=== PATIENT | male | born 1955 | race Caucasian/White ===

== ENCOUNTER 2017-12-10 16:18 | Emergency (ER) | payer MEDICAID ==
[2017-12-10] MEDS ORDERED: HYOSCYAMINE SULFATE 0.125 MG TAB PO ONE (16:43)
[2017-12-10] MEDS ORDERED: LIDOCAINE 2% VISCOUS 15 ML UDCUP PO ONE (16:43)
[2017-12-10] MEDS ORDERED: MAG HYDROX/AL HYDROX/SIMETH 30 ML UDCUP PO ONE (16:43)
--- NOTE | 2017-12-10 16:48 | EDPHY ---
H & P Time Seen by Provider: 12/10/17 16:31 HPI/ROS: CHIEF COMPLAINT: Pill stuck in throat HISTORY OF PRESENT ILLNESS: This is a 62-year-old gentleman who reports that this morning he took 2 Colace pills. The 1st pill he swallowed normally. He feels that the 2nd pill was stuck right at the level of his larynx. Patient has been able to eat solids, and drink liquids without any difficulty. He is handling his secretions. He did not have a coughing or choking episode when he was swallowing the pills. He does not feel short of breath. He does not have any chest pain. He reports it feels like the pill is "rolling around" near his larynx, to the left side. He does report that he has difficulty swallowing his pills and will feel like 1 of them gets stuck at least every couple of months. He has not had a upper GI study performed. The patient did not take his other usual medications this morning after having difficulty swallowing the Colace, does he feels confident that it was the Colace tablet which is lodged. He was otherwise well with the exception of some constipation. REVIEW OF SYSTEMS: Aside from elements discussed in the HPI, a comprehensive 10-point review of systems was reviewed and is negative. PAST MEDICAL HISTORY: Hypertension. Myocardial infarction, sinus surgeries. SOCIAL HISTORY: Nonsmoker. VITAL SIGNS: see nurse's notes. GENERAL: Well-developed, well-nourished, speaking in a normal voice. No stridor. No respiratory distress. No drooling. HEENT: Normal, no discharge or icterus, moist mucous membranes. Posterior pharynx is normal, no abrasions noted. No pooling of secretions. Neck: supple , FROM. No subcutaneous air palpated. No tenderness along the larynx. LUNGS: Clear to auscultation bilaterally, no wheezes, rhonchi or rales. No stridor. CARDIAC: Regular rate and rhythm, no rubs, murmurs or gallops. ABDOMEN: Soft, nontender, nondistended, bowel sounds normal. BACK: No CVA tenderness. No vertebral tenderness. EXTREMITIES: No edema, FROM. NEURO: Alert and oriented, grossly nonfocal. SKIN: Warm and dry, no rash. Smoking Status: Former smoker Constitutional: Initial Vital Signs Temperature (C) 36.7 C 12/10/17 16:27 Heart Rate 81 12/10/17 16:27 Respiratory Rate 18 12/10/17 16:27 Blood Pressure 146/97 H 12/10/17 16:27 O2 Sat (%) 93 12/10/17 16:27 O2 Delivery Mode Room Air Allergies/Adverse Reactions: Sulfa (Sulfonamide Antibiotics) Adverse Reaction (Verified 12/10/17 16:23) Home Medications: Medication Instructions Recorded Aspirin [Aspirin 325 mg (OTC)] 325 mg PO DAILY PRN 09/29/12 Lisinopril [Zestril 2.5 mg (*)] 2.5 mg PO DAILY #30 tab 09/29/12 Metoprolol Tartrate [Lopressor 50 50 mg PO BID #60 tab 09/29/12 mg (*)] Ondansetron Odt [Zofran Odt] 4 mg PO Q4PRN PRN #20 tab 09/29/12 Atorvastatin Calcium 05/15/14 Protonix 05/15/14 Gabapentin 10/12/14 Claritin 12/10/17 Nortriptyline HCl 12/10/17 Pulmicort 0.5MG/2Ml Neb 12/10/17 Ranitidine HCl 12/10/17 traZODone 12/10/17 Medical Decision Making - Diagnostics Imaging Results: Imaging Impressions Soft Tissue Neck X-Ray 12/10/17 16:43 Impression: 1. No radiopaque foreign object identified. Multiple pills may not be radiopaque. 2. Degenerative change in the cervical spine. 3. Carotid atherosclerosis. ED Course/Re-evaluation: Soft tissue lateral of the neck was ordered to evaluate for any foreign body visible in the upper airway. Patient does not have any stridor, difficulty speaking, coughing, or choking. No foreign body visualized in the upper airway on the soft tissues. We do not have a nasopharyngeal scope available at this institution. Patient received a GI cocktail and felt like it diminished his discomfort although he occasionally still feels that there is something stuck to the left side of his larynx. He continues to look well with no speech difficulty or stridor. He was advised to follow up with ENT as soon as possible if he continues to have symptoms especially if he should have coughing or choking sensation. He understands reasons to return to the emergency department. She also understands that drinking fluids and carbonated beverages may be helpful in helping any residual pill fragments to dissolve. Differential Diagnosis: Differential diagnoses for the patient's symptom complex was considered including but not limited to swallowed foreign body, esophageal abrasion, aspirated foreign body, foreign body sensation, esophagitis, pill esophagitis. - Data Points Medications Given: Discontinued Medications Al Hydroxide/Mg Hydroxide (Maalox Susp) 30 ml PO ONCE ONE Stop: 12/10/17 16:44 Last Admin: 12/10/17 17:02 Dose: 30 ml Hyoscyamine Sulfate (Levsin, Hyomax-Sl) 0.25 mg PO ONCE ONE Stop: 12/10/17 16:44 Last Admin: 12/10/17 17:02 Dose: 0.25 mg Lidocaine (Lidocaine 2% Viscous) 15 ml PO ONCE ONE Stop: 12/10/17 16:44 Last Admin: 12/10/17 17:02 Dose: 15 ml Departure - Departure Disposition: Home, Routine, Self-Care Clinical Impression: Swallowed foreign body Qualifiers: Encounter type: initial encounter Qualified Code(s): T18.9XXA - Foreign body of alimentary tract, part unspecified, initial encounter Condition: Good Instructions: Esophageal Foreign Body (ED) Additional Instructions: Please drink plenty of liquids and fluids. Consider drinking carbonated beverage which may help dissolve any residual pill fragments. Okay to take Maalox or Mylanta this helps to the esophagus. Avoid spicy foods until you are feeling better. Follow up with ENT as directed below if you continued to feel that there is a pill lodged near your larynx. I would also encourage you to follow up with Gastroenterology if you continued to have difficulty swallowing pills. You may need to have a esophageal study performed. Referrals: Claudio Porter MD [Primary Care Provider] - As per Instructions Miguel Rubio MD [Medical Doctor] - As per Instructions (Dr. Rubio is in Ear Nose and Throat physician) Jacinto Davey MD, FACG [Medical Doctor] - As per Instructions (Dr. Davey is a wire coiler machine operator)
[2017-12-10 17:34] VITALS: BP 152/92
== END 2017-12-10 17:22 | disposition home or self-care (01) ==
LOC: CED 16:18
DX: T18.9XXA Foreign body of alimentary tract, part unspecified, initial encounter (principal); I10 Essential (primary) hypertension; I25.2 Old myocardial infarction; Z79.82 Long term (current) use of aspirin; X58.XXXA Exposure to other specified factors, initial encounter
CPT/HCPCS: 70360-PO

== ENCOUNTER → 2017-12-13 | Outpatient (CLI) | payer MEDICAID | LOC: CIMAGING 07:20 | PROVIDERS: ATTEND Physician Assistant | DX: R11.2 Nausea with vomiting, unspecified (principal) | CPT/HCPCS: 76705-PO ==

== ENCOUNTER 2018-04-13 05:06 | Emergency (ER) | payer OTHER, MEDICARE ==
--- NOTE | 2018-04-13 05:49 | EDPHY ---
H & P Stated Complaint: Stomach cramps intermittant. Source: Patient - Medical/Surgical History Other PMH: Previous heart attack, cyclic vomiting syndrome, uses marijuana, spinal fusion C5-6, degerative disks, cataracts '2009. multiple sinus surgerie , Gastric issues sees Gastroenerologist. - Social History Smoking Status: Former smoker Time Seen by Provider: 04/13/18 05:22 HPI/ROS: CHIEF COMPLAINT: Nausea vomiting abdominal pain History by patient HISTORY OF PRESENT ILLNESS: 63-year-old man with a history of prior MA and cyclic vomiting syndrome, and abdominal surgery for duodenal cyst presents tonight complaining of upper abdominal pain which woke him from sleep. Patient states that earlier in the evening he had some nausea after eating pizza and then developed some diffuse crampy pain that radiated to his back but then woke up with more nausea had 1 episode of vomiting now has the persistent pain. He states that is typical for him to have nausea every day and his last episode of severe vomiting with 6 months ago but that he normally does not get associated abdominal pain. He denies any diarrhea. He denies any fever. Pain does not radiate to his leg or groin. He denies any numbness or weakness in his legs. He denies any urinary symptoms.. He has chronic neck pain for which he sometimes takes Percocet but says he has not taken this in several months. He smokes marijuana for his chronic neck pain. He says his cyclic vomiting began before he started smoking marijuana. He is followed by of GI and Dr. Camacho. REVIEW OF SYSTEMS: As in HPI, and all other systems reviewed and are negative (Sarah Guillen) - Physical Exam Exam: General Appearance: Alert, nontoxic appearing, comfortable appearing. Eyes: Pupils equal and round, extraocular movements intact, no pallor or injection. Mouth: Mucous membranes moist. Pharynx clear Respiratory: Normal, effort, lungs are clear to auscultation. No wheezes, rales or rhonchi. Cardiovascular: Regular rate and rhythm. S1, S2, no murmurs, gallops or rubs appreciated Gastrointestinal: Well-healed midline scar, bowel sounds present, Abdomen is soft and nondistended, nontender, no masses Back: No CVA tenderness, no bony tenderness : Normal external genitalia Neurological: Awake, alert and oriented x 3, no pronator drift, normal gait, no pronator drift Skin: Warm and dry, no rashes. Musculoskeletal: No deformities or tenderness. Extremities: full range of motion, no edema, femoral pulses equal bilaterally Psychiatric: Patient has normal affect, there is no agitation. (Sarah Guillen) Constitutional: Initial Vital Signs Temperature (C) 37.1 C 04/13/18 05:10 Heart Rate 69 04/13/18 05:10 Respiratory Rate 16 04/13/18 05:10 Blood Pressure 161/89 H 04/13/18 05:10 O2 Sat (%) 91 L 04/13/18 05:10 O2 Delivery Mode Room Air Allergies/Adverse Reactions: Sulfa (Sulfonamide Antibiotics) Adverse Reaction (Intermediate, Verified 05:11) Rash Home Medications: Medication Instructions Recorded Aspirin [Aspirin 325 mg (OTC)] 325 mg PO DAILY PRN 09/29/12 Lisinopril [Zestril 2.5 mg (*)] 2.5 mg PO DAILY #30 tab 09/29/12 Metoprolol Tartrate [Lopressor 50 50 mg PO BID #60 tab 09/29/12 mg (*)] Ondansetron Odt [Zofran Odt] 4 mg PO Q4PRN PRN #20 tab 09/29/12 Atorvastatin Calcium 05/15/14 Protonix 05/15/14 Gabapentin 10/12/14 Claritin 12/10/17 Pulmicort 0.5MG/2Ml Neb 12/10/17 traZODone 12/10/17 Hyoscyamine Sulfate [Levsin, 0.125 - 0.25 mg SL Q6 PRN #20 tab 04/13/18 Hyomax-Sl 0.125 mg (*)] Medical Decision Making - Diagnostics EKG Interpretation: Normal sinus rhythm at a rate of 60 with normal axis, normal intervals, early transition of R-wave, there is no old EKG available for comparison. No evidence of acute ischemia. Impression: Abnormal EKG (Sarah Guillen) ED Course/Re-evaluation: 63-year-old man with history of chronic cyclical vomiting syndrome presents with nausea, vomiting and abdominal pain which is not typical for him. Exam is unremarkable and he is hemodynamically stable. Patient was given IV Haldol with improvement in his pain and nausea but not complete resolution of his nausea. I reviewed old records showed the patient had ultrasound 3 months ago that showed a borderline aneurysm neck proximal aorta and unremarkable gallbladder. Given this and the atypical pain symptoms the CT scan is obtained his abdomen. This was read by the radiologist as ileus versus early small bowel obstruction. Patient's labs were notable for slightly low potassium, normal CBC and normal liver enzymes. Lipase is pending at time dictation. On re-evaluation of the patient was feeling somewhat better and was willing to try oral fluids. There is no obvious evidence of emergent surgical condition at this time. I will transfer care to Dr. Nguyễn pending results of the lipase and p.o. Challenge. (Sarah Guillen) I spoke with this patient at 7:30 a.m. Relating the his normal lipase to him and re-examined his belly at this time is normoactive bowels with mild tenderness in left upper quadrant with no guarding or rebound. He reports that he has 2 to 3/10 crampy discomfort that his nausea is improved. He tolerated p. O. Juliet catrachita. He would like to try some Levsin for his cramping prior to discharge. (Mason Nguyễn) - Data Points Laboratory Results: 04/13/18 04/13/18 04/13/18 06:11 06:09 05:58 POC Sodium 140 mEq/L mEq/L (135-145) POC Potassium 3.2 mEq/L L mEq/L (3.3-5.0) POC Chloride 103.0 mEq/L mEq/L (97-110) POC Total CO2 24 mEq/L mEq/L (22-31) POC BUN 14 mg/dL mg/dL (7-23) POC Creatinine 1.0 mg/dL mg/dL (0.7-1.3) POC Glucose 135 mg/dL H mg/dL (70-100) POC Calcium 9.8 mg/dL mg/dL (8.5-10.4) POC Total Bilirubin 0.9 mg/dL mg/dL (0.1-1.4) POC GGT 20 IU/L IU/L (5-65) POC AST 34 IU/L IU/L (17-59) POC ALT 28 IU/L IU/L (21-72) POC Alk Phosphatase 81 IU/L IU/L (38-126) POC Troponin I 0.01 ng/mL ng/mL (0.00-0.08) POC Total Protein 7.2 g/dL g/dL (6.3-8.2) POC Albumin 4.4 g/dL g/dL (3.5-5.0) POC Amylase 50 IU/L IU/L (30-110) Lipase 04/13/18 05:45 POC Sodium POC Potassium POC Chloride POC Total CO2 POC BUN POC Creatinine POC Glucose POC Calcium POC Total Bilirubin POC GGT POC AST POC ALT POC Alk Phosphatase POC Troponin I POC Total Protein POC Albumin POC Amylase Lipase 86 IU/L IU/L (23-300) Medications Given: Discontinued Medications Haloperidol Lactate (Haldol Injection) 2.5 mg IVP EDNOW ONE Stop: 04/13/18 05:41 Last Admin: 04/13/18 05:52 Dose: 2.5 mg Sodium Chloride (Ns) 1,000 mls @ 0 mls/hr IV EDNOW ONE; Wide Open PRN Reason: Protocol Stop: 04/13/18 05:28 Last Admin: 04/13/18 05:53 Dose: 1,000 mls Point of Care Test Results: CBC CBC Collection Date 04/13/18 CBC Collection Time 05:45 WBC 8.4 RBC 5.11 HGB 16.6 HCT 46.4 PLT 185 Neut # 5.7 Neut 66.9 LYMPH # 1.8 LYMPH 21.8 Other WBC # 0.9 Other WBC 11.3 MCV 90.8 Chemistry 04/13/18 04/13/18 04/13/18 06:11 06:09 05:58 POC Sodium 140 mEq/L mEq/L (135-145) POC Potassium 3.2 mEq/L L mEq/L (3.3-5.0) POC Chloride 103.0 mEq/L mEq/L (97-110) POC Total CO2 24 mEq/L mEq/L (22-31) POC BUN 14 mg/dL mg/dL (7-23) POC Creatinine 1.0 mg/dL mg/dL (0.7-1.3) POC Glucose 135 mg/dL H mg/dL (70-100) POC Calcium 9.8 mg/dL mg/dL (8.5-10.4) POC Total Bilirubin 0.9 mg/dL mg/dL (0.1-1.4) POC GGT 20 IU/L IU/L (5-65) POC AST 34 IU/L IU/L (17-59) POC ALT 28 IU/L IU/L (21-72) POC Alk Phosphatase 81 IU/L IU/L (38-126) POC Troponin I 0.01 ng/mL ng/mL (0.00-0.08) POC Total Protein 7.2 g/dL g/dL (6.3-8.2) POC Albumin 4.4 g/dL g/dL (3.5-5.0) POC Amylase 50 IU/L IU/L (30-110) Liver Function Tests LFT Collection Date 04/13/18 LFT Collection Time 05:45 Departure - Departure Clinical Impression: Abdominal pain Qualifiers: Abdominal location: upper abdomen, unspecified Qualified Code(s): R10.10 - Upper abdominal pain, unspecified Nausea and vomiting Qualifiers: Vomiting type: unspecified Vomiting Intractability: non-intractable Qualified Code(s): R11.2 - Nausea with vomiting, unspecified Condition: Fair Instructions: Acute Nausea and Vomiting (ED), Acute Abdominal Pain (ED) Additional Instructions: Diagnoses: 1. Abdominal pain 2. Vomiting Plan: Light diet until you feel improved Zofran for nausea vomiting as needed Levsin for abdominal discomfort if needed Follow up with primary care physician for any ongoing symptoms Return emergency department for any significant worsening despite treatment plan Referrals: Patient,NotPresent [Primary Care Provider] - As per Instructions Tiffany Marshall MD [Medical Doctor] - As per Instructions
[2018-04-13] MEDS: HALOPERIDOL LACT 5 MG/ML INJ IVP ONE (05:52)
[2018-04-13] MEDS: NS 1,000 ML IV ONE (05:53)
[2018-04-13] MEDS ORDERED: IOPAMIDOL (ISOVUE-300) 100 ML BTL ONE (06:23)
[2018-04-13] MEDS: HYOSCYAMINE SULFATE 0.125 MG TAB PO ONE (07:35)
[2018-04-13 07:59] VITALS: BP 139/86
== END 2018-04-13 07:54 | disposition home or self-care (01) ==
LOC: CED 05:06
DX: R10.10 Upper abdominal pain, unspecified (principal); R11.2 Nausea with vomiting, unspecified
CPT/HCPCS: 74177; 96361; 96374; 99285; J1630; Q9967; 80048-PO; 80076-PO; 82150-PO; 84484-PO

== ENCOUNTER → 2018-05-04 | Outpatient (CLI) | payer OTHER, MEDICARE | LOC: BHFA 13:30 | PROVIDERS: ATTEND Internal Medicine Cardiovascular Disease | DX: I25.10 Atherosclerotic heart disease of native coronary artery without angina pectoris (principal) ==